=== PATIENT | female | born 1990 | race Caucasian/White ===

== ENCOUNTER 2017-04-30 03:14 | Emergency (ER) | payer SELFPAY ==
[~2017-04-30] VITALS: Ht 162.6 cm; Wt 59.0 kg
[2017-04-30 03:18] VITALS: Ht 162.6 cm; Wt 59.0 kg
[2017-04-30] MEDS ORDERED: DIPHTH/TET/ACEL PERTUSS (ADULT) 0.5 ML VIAL IM* ONE (04:00)
[2017-04-30] MEDS ORDERED: TETRACAINE 0.5% 4 ML OPH BOTH EYES ONE (04:00)
[2017-04-30] MEDS ORDERED: FLUORESCEIN STRIP BOTH EYES ONE (04:00)
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
[2017-04-30] MEDS ORDERED: morphine 4 MG/ML VIAL IV STA (04:03)
[2017-04-30] MEDS ORDERED: ONDANSETRON 4 MG INJ IV STA (04:03)
[2017-04-30] MEDS ORDERED: ACETAMINOPHEN 500 MG TAB PO STA (04:23)
[2017-04-30 04:30] LABS: BASOPHILS % 0.2 % (0.0-2.0); EOSINOPHILS # 0.1 10^3/ul (0.0-0.5); EOSINOPHILS % 1.7 % (0.0-7.0); HEMATOCRIT 42.4 % (37.0-47.0); HEMOGLOBIN 14.3 g/dl (12.0-16.0); LYMPHOCYTES # 2.4 10^3/ul (0.8-2.9); LYMPHOCYTES % 29.9 % (15.0-51.0); MEAN CORPUSCULAR HEMOGLOBIN 28.8 pg (29.0-33.0); MEAN CORPUSCULAR HGB CONC 33.7 g/dl (32.0-37.0); MEAN CORPUSCULAR VOLUME 85.5 fl (82.0-101.0); MEAN PLATELET VOLUME 9.7 fl (7.4-10.4); MONOCYTE # 0.4 10^3/ul (0.3-0.9); MONOCYTES % 5.5 % (0.0-11.0); NEUTROPHILS % 62.5 % (39.0-77.0); PLATELET COUNT 402 10^3/UL (140-415); RED BLOOD COUNT 4.96 10^6/ul (4.20-5.40); RED CELL DISTRIBUTION WIDTH 12.1 % (11.5-14.5)
[2017-04-30 04:50] LABS: ALBUMIN 4.9 g/dl (3.3-4.9); ALBUMIN/GLOBULIN RATIO 1.25; BILIRUBIN,INDIRECT 1.3 mg/dl (0-1.1); BILIRUBIN,TOTAL 1.3 mg/dl (0.2-1.3); CREATININE 0.77 mg/dl (0.44-1.00); POTASSIUM 3.8 mmol/L (3.5-5.1); TOTAL PROTEIN 8.8 g/dl (6.1-8.1)
[2017-04-30] MEDS ORDERED: IOHEXOL 300MG/ML 150 ML BTL ONE (04:50)
[2017-04-30] MEDS ORDERED: SOD CHLORIDE 0.9% 100 ML ONE (04:50)
[2017-04-30 05:01] LABS: ADD UMIC YES; UR ASCORBIC ACID NEGATIVE (NEGATIVE); UR BILIRUBIN (Dip) NEGATIVE (NEGATIVE); UR BLOOD (Dip) 2+ mg/dL (NEGATIVE); UR CLARITY CLEAR (CLEAR); UR COLOR YELLOW (YELLOW); UR GLUCOSE (Dip) NEGATIVE (NEGATIVE); UR KETONES (Dip) 1+ mg/dL (NEGATIVE); UR LEUKOCYTE ESTERASE (Dip) NEGATIVE Leu/ul (NEGATIVE); UR MUCUS MANY /HPF (NONE SEEN); UR NITRITE (Dip) NEGATIVE (NEGATIVE); UR RBC 7 /HPF (0-5); UR SPECIFIC GRAVITY (Dip) 1.031 (1.003-1.030); UR SQUAMOUS EPITHELIAL CELL FEW /HPF (FEW); UR TOTAL PROTEIN (Dip) 1+ mg/dl (NEGATIVE); UR UROBILINOGEN (Dip) 2+ mg/dL (NEGATIVE)
--- NOTE | 2017-04-30 05:48 | RADRPT ---
PROCEDURE: CT Brain without. CLINICAL INDICATION: Pain status post trauma TECHNIQUE: A CT of the brain was performed utilizing axial sections from the skull base through th e vertex without contrast. The scan was reviewed in soft tissue brain and high frequency resolution bone algorithm windows. Images were reviewed on a high-resolution PACS workstation. The exam CTDI = 45.01 mGy, and the DLP = 720.23 mGy-cm. One or more of the following dose reduction techniques w ere used: Automated exposure control, adjustment of the mA and / or kV according to patient size, o r use of iterative reconstruction technique. COMPARISON: None available FINDINGS: The ventricles are normal in size and midline in position. There is no intracranial hemorrhage, mid line shift, or mass effect. No abnormal extra-axial fluid collections are identified. The rice-whi te differentiation is well preserved. The basal cisterns are patent. The posterior fossa is unrema rkable. The visualized portions of the orbits are unremarkable. There is mucosal thickening of the right max illary sinus. The remainder of the paranasal sinuses and mastoid air cells are clear. No calvarial fracture or abnormality are identified. There is left periorbital soft tissue edema. IMPRESSION: 1. No acute intracranial abnormality identified. 2. Left periorbital soft tissue edema. RPTAT: HH .Vandana Li MD, Date Time Electronically viewed and signed by .Vandana Li MD, on 04/30/2017 05:48 .G/
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
--- NOTE | 2017-04-30 05:58 | RADRPT ---
PROCEDURE: CT Abdomen and Pelvis with contrast. CLINICAL INDICATION: Abdominal pain. TECHNIQUE: CT scan of the abdomen and pelvis with contrast was performed utilizing axial tomograph ic images from the domes the diaphragm to the symphysis pubis. The patient was scanned post uncomp licated intravenous administration of 100 cc of Omnipaque-300. Coronal and sagittal reformatted katie ges were obtained from the axial source images. Images were reviewed on a high-resolution PACS works tation. The total exam CTDI equals 10.50 mGy and the total exam DLP equals 604.96 mGy-cm. One or mo re of the following dose reduction techniques were used: Automated exposure control, adjustment of the mA and / or kV according to patient size, or use of iterative reconstruction technique. COMPARISON: None. FINDINGS: The lung bases demonstrate mild bilateral basilar atelectatic changes. The liver is normal in size and contour. No focal intrahepatic masses are identified. There is no intra or extrahepatic bilia ry dilatation. The gallbladder is unremarkable by CT criteria. The spleen, pancreas, and adrenal g lands are unremarkable. The kidneys are symmetric in size and demonstrate normal enhancement. No hydronephrosis or hydroure ter is identified. There are 2 small sub centimeter cysts within the upper pole of the right kidney. The urinary bladder is unremarkable. The bowel demonstrates normal course and caliber. There is no evidence of bowel obstruction. No raquel wel wall thickening is identified. The appendix is normal in appearance. An IUD is in place. The u terus and adnexa are otherwise unremarkable. No intraperitoneal free fluid, free air or abscess bradley ntified. No retroperitoneal, mesenteric, or inguinal adenopathy is identified. The abdominal aorta and major branching vessels are normal in caliber. The osseous structures are u nremarkable. There is right lower quadrant abdominal soft tissue stranding, as well as soft tissue s tranding along the midline pelvis. IMPRESSION: 1. No acute intra-abdominal abnormality identified. 2. IUD in place. 3. Small sub centimeter cyst in the upper pole of the right kidney. 4. Right lower quadrant and lower midline abdominal wall subcutaneous soft tissue edema. RPTAT: .Vandana Li MD, MD Date Time Electronically viewed and signed by .Vandana Li MD, MD on 04/30/2017 05:58 .G/
--- NOTE | 2017-04-30 06:01 | RADRPT ---
PROCEDURE: US Pelvis CLINICAL INDICATION: Pelvic pain, vaginal bleeding. TECHNIQUE: Sonographic evaluation of the pelvis was performed utilizing both transabdominal and tr ansvaginal technique. Curved array transabdominal transducer technique as well as a high frequency endovaginal probe was utilized. Images were reviewed on the high-resolution PACS workstation. COMPARISON: No prior studies are available for comparison. FINDINGS: The uterus is normal in size, echogenicity, and morphology measuring 7.4 x 4.0 x 5.6 cm in dimension . The uterus is anteverted in normal position. The endometrium is thin and homogeneous measuring 2.9 mm in diameter. An IUD is in place. The right ovary measures 2.4 x 1.3 x 1.5 cm in dimension. The left ovary measures 3.3 x 2.2 x 2.5 c m in dimension. There is a 2.1 cm simple appearing left ovarian cyst. The ovaries are symmetric in s ize, echogenicity, and morphology. Normal Doppler flow is demonstrated to both ovaries. There are no adnexal masses. There is no significant free fluid in the pelvis. IMPRESSION: IUD in place. Otherwise, unremarkable pelvic ultrasound. RPTAT: HH .Vandana Li MD, Date Time Electronically viewed and signed by .Vandana Li MD, on 04/30/2017 06:01 .Tadeo/
[2017-04-30] MEDS ORDERED: DOCU-144 PO (06:25)
[2017-04-30] MEDS ORDERED: HYDR-902 PO (06:25)
== END 2017-04-30 07:00 | disposition home or self-care (01) ==
LOC: FTE 03:14
DX: S30.1XXA Contusion of abdominal wall, initial encounter (principal); N93.8 Other specified abnormal uterine and vaginal bleeding; S06.0X1A Concussion with loss of consciousness of 30 minutes or less, initial encounter; S00.83XA Contusion of other part of head, initial encounter; J45.909 Unspecified asthma, uncomplicated; R10.2 Pelvic and perineal pain; Y09 Assault by unspecified means; Y92.9 Unspecified place or not applicable; Z23 Encounter for immunization; Z87.891 Personal history of nicotine dependence
CPT/HCPCS: 70450; 70486; 74177; 76830; 76856; 80053; 81001; 85025; 90715; Q9967; 90471

== ENCOUNTER 2017-05-23 01:56 | Emergency (ER) | payer MEDICAID ==
[~2017-05-23] VITALS: Ht 154.9 cm; Wt 64.0 kg
[~2017-05-23 01:56] MED LIST: DOCU-144 PO; HYDR-902 PO
[2017-05-23 02:03] VITALS: Ht 154.9 cm; Wt 64.0 kg
[2017-05-23] MEDS ORDERED: DIPHENHYDRAMINE 50 MG INJ IV STA (03:10)
[2017-05-23] MEDS ORDERED: METHYLPREDNISOLONE 125 MG INJ IV STA (03:10)
[2017-05-23] MEDS ORDERED: EPINEPHrine 1 MG INJ IM STA (03:10)
[2017-05-23] MEDS ORDERED: FAMOTIDINE 20 MG INJ INJ STA (03:10)
--- NOTE | 2017-05-23 04:33 | ERD ---
ER Documentation Chief Complaint Date/Time DATE: 05/23/17 TIME: 04:29 Chief Complaint Pounding on chest with pain, feels like she is going to faint. Facial edema HPI This is a 26-year-old female who presents to the emergency room with facial swelling. The patient describes facial edema. She describes episodes of this in the past including right hand edema and facial swelling that has been on and off for several months if not longer for approximately 1 year. She has never been seen for this. However over the past 12 hours she has noted right-sided facial swelling and upper lip swelling with associated palpitations. At triage she noted chest pain but she denies this to me. The patient denies any new medications or detergents, no family history of lip swelling or tongue swelling. She denies any insect bites. She denies any difficulty swallowing or breathing or drooling. ROS All systems reviewed and are negative except as per history of present illness. Medications Home Meds Active Scripts Prednisone* (Prednisone*) 20 Mg Tab, 40 MG PO DAILY for 4 Days, TAB Prov:NEO LARA MD 05/23/17 Hydroxyzine Hcl* (Atarax*) 25 Mg Tab, 25 MG PO Q6H Y for facial swelling, #20 TAB Prov:NEO LARA MD 05/23/17 Docusate Sodium* (Colace*) 100 Mg Capsule, 100 MG PO TID, #30 CAP Prov:GO URENA NP 04/30/17 Hydrocodone/Acetaminophen (Heidrick 10-325 Tablet) 1 Each Tablet, 1 TAB PO Q6H Y for SEVERE PAIN LEVEL 7-10, #20 TAB Prov:GO URENA NP 04/30/17 Reported Medications [none] Unknown Strength No Conflict Check 04/30/17 Allergies Allergies: Coded Allergies: No Known Drug Allergies (Verified Allergy, Unknown, 01/20/15) PMhx/Soc Medical and Surgical Hx: pt denies Surgical Hx History of Surgery: No Anesthesia Reaction: No Hx Neurological Disorder: No Hx Respiratory Disorders: Yes (asthma) Hx Cardiac Disorders: Yes (SVT) Hx Psychiatric Problems: No Hx Miscellaneous Medical Probl: Yes (anemia) Hx Alcohol Use: Yes Hx Substance Use: Yes Hx Tobacco Use: Yes Smoking Status: Current every day smoker FmHx Family History: No diabetes Physical Exam Vitals Vital Signs Date Time Temp Pulse Resp B/P Pulse Ox O2 Delivery O2 Flow Rate FiO2 05/23/17 03:45 97 20 114/80 100 Room Air 05/23/17 02:03 98.0 97 22 141/65 100 Physical Exam General: Well developed, well nourished, no acute distress Head: Normocephalic, atraumatic. Eyes: Pupils equally reactive, EOM intact ENT: Moist mucous membranes, significant right infraorbital facial swelling and edema with upper lip swelling and edema right sided greater than left. Tongue is of normal size, soft submental space, tolerating secretions, posterior pharynx with uvula midline, no swelling or edema Neck: Supple, no lymphadenopathy Respiratory: Lungs clear bilaterally, no distress Cardiovascular: RRR, no murmurs, rubs, or gallops Abdominal: Soft, non-tender, non-distended, no peritoneal signs : Deferred MSK: Slight right hand edema, no unilateral swelling, 5/5 strength Neurologic: Alert and oriented, moving all extremities, normal speech, no focal weakness, no cerebellar signs Skin: No rash, no urticaria Psych: Normal mood Results 24 hrs Current Medications Medications (Trade) Dose Ordered Sig/Izabel Route PRN Reason Start Time Stop Time Status Last Admin Dose Admin Diphenhydramine HCl (Benadryl) 25 mg ONCE STAT IV 05/23/17 03:10 05/23/17 03:12 DC 05/23/17 03:40 Epinephrine (EPINEPHrine) 0.3 mg ONCE STAT IM 05/23/17 03:10 05/23/17 03:12 DC 05/23/17 03:42 Famotidine (Pepcid Iv) 20 mg ONCE STAT INJ 05/23/17 03:10 05/23/17 03:12 DC 05/23/17 03:40 Methylprednisolone Sodium Succinate (Solu-Medrol) 125 mg ONCE STAT IV 05/23/17 03:10 05/23/17 03:12 DC 05/23/17 03:40 Procedures/MDM EKG, MONITORS, & DIAGNOSTIC IMAGING: EKG: I reviewed and interpreted a 12-lead EKG. Rhythm: Normal sinus rhythm Ectopy: None Intervals: No abnormalities ST segments: No elevations or depressions T waves: No contiguous inversions MEDICAL DECISION MAKING: The patient presents with clinical signs and symptoms very consistent with acute idiopathic angioedema. The patient describes the symptoms on and off for approximately 1 year. This is possibly related to hereditary angioedema but the patient does not have a family history of this. She is not taking any medications and has no other possible triggers. Considerations include complement mediated angioedema versus mast cell mediated angioedema. The patient is currently protecting her airway and has no evidence of impending airway failure. No indication for early airway intervention at this time. Continue to monitor. She will benefit from initial treatment for the potential of mast cell mediated angioedema including epinephrine, Solu-Medrol, Benadryl and Pepcid. Given that her symptoms are mild to moderate at this time and the fact that we do not have a C1 esterase inhibitor on formulary, I do not feel that the benefits of FFP are present at this time. I will hold unless the patient clinically changes. ER COURSE: The patient has had interval improvement of her facial swelling. No further evidence of airway involvement. Outpatient management appropriate. Primary care follow-up recommended. I kept the patient and/or family informed of laboratory and diagnostic imaging results throughout the emergency room course. DISPOSITION PLAN: We discussed follow up with the patient's primary care doctor within 24 to 48 hours as needed. We also discussed return to the emergency room for worsening symptoms or worsening condition. Outpatient referral: [None required] Discharge Medications: Prednisone and Atarax Departure Diagnosis: Primary Impression: Idiopathic angioedema Encounter type: initial encounter Qualified Code: T78.3XXA - Idiopathic angioedema, initial encounter Condition: Stable NEO LARA MD May 23, 2017 04:31
[2017-05-23] MEDS ORDERED: HYDR-842 PO (05:22)
[2017-05-23] MEDS ORDERED: PRED20TA PO (05:22)
[2017-05-23 05:47] VITALS: BP 115/78; PULSE 89; RESP 18
== END 2017-05-23 05:52 | disposition home or self-care (01) ==
LOC: E/R 01:56
DX: T78.3XXA Angioneurotic edema, initial encounter (principal); J45.909 Unspecified asthma, uncomplicated; F17.210 Nicotine dependence, cigarettes, uncomplicated
CPT/HCPCS: 93005; 96372; 96374; 96375; J0171; J1200; J2930; Z7502; Z7610

== ENCOUNTER 2018-03-21 13:39 | Emergency (ER) | END 2018-03-21 17:24 | disposition home or self-care (01) ==